=== PATIENT | male | born 1990 | race Caucasian/White ===

== ENCOUNTER 2021-03-08 13:43 | Emergency (ER) | payer OTHER ==
--- NOTE | 2021-03-08 14:14 | EDM.PDOC ---
ED HPI GENERAL MEDICAL PROBLEM - General Chief Complaint: Upper Extremity Injury/Pain Stated Complaint: R HAND INJURY Time Seen by Provider: 03/08/21 13:58 Source of Information: Reports: Patient, RN Notes Reviewed History Limitations: Reports: No Limitations - History of Present Illness INITIAL COMMENTS - FREE TEXT/NARRATIVE: Patient is a 31-year-old male who presents to the ER for 2 fractures of his right hand. Patient was walking down some stairs at work, when he fell into a gap in the stairs, and caught himself with an outstretched right hand. He said he had pain to his right hand after the injury. He went to the occupational health clinic today, they did take x-rays, and sent him here for further evaluation and management as they stated they did not have splinting material to be able to help the gentleman. Been using Tylenol and ibuprofen for pain management but states this is not helped much. He is not having any numbness or tingling into the hand. 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 Patient is right-hand dominant. X-rays were obtained from the [facility], and these do demonstrate midshaft fractures of the third and fourth metacarpals. There is a minimal amount of displacement noted. - Related Data Allergies Allergy/AdvReac Type Severity Reaction Status Date / Time No Known Allergies Allergy Verified 03/08/21 13:58 Home Meds: Home Meds Hydrocodone/Acetaminophen [HYDROcodone-Acetaminophen 5-325 MG] 1 each PO Q6H PRN #20 tablet 03/08/21 [Rx] Past Medical History - Past Health History Medical/Surgical History: Denies Medical/Surgical History Social & Family History - Tobacco Use Tobacco Use Status *Q: Never Tobacco User - Recreational Drug Use Recreational Drug Use: No Review of Systems - Review of Systems Review Of Systems: Comprehensive ROS is negative, except as noted in HPI. ED EXAM, GENERAL - Physical Exam Exam: See Below Exam Limited By: No Limitations General Appearance: Alert, WD/WN, No Apparent Distress Respiratory/Chest: No Respiratory Distress, Lungs Clear, Normal Breath Sounds, No Accessory Muscle Use, Chest Non-Tender Cardiovascular: Normal Peripheral Pulses, Regular Rate, Rhythm, No Edema Extremities: Normal Capillary Refill, Other (There is quite a bit of swelling noted to the dorsal aspect of the patient's right hand. He does have some loss of strength in his hand, due to the pain.) Neurological: Alert, Oriented, Normal Cognition, No Motor/Sensory Deficits Psychiatric: Normal Affect, Normal Mood Skin Exam: Warm, Dry, Intact, Normal Color, No Rash ED TRAUMA EXTREMITY PROCEDURES - Splinting Right Upper Extremity Splint Site: R hand Pre-Procedure NV Status: Normal Post-Procedure NV Status: Normal Splint Material: Fiberglass Splint Design: Gutter (ulnar gutter short arm) Applied & Form Fitted By: Provider Provider Post-Splint Application NV Check: NV Status Normal, Good Position Complications: No Course - Vital Signs Last Recorded V/S: Last Vital Signs Temp 97.2 F 03/08/21 13:55 Pulse 82 03/08/21 13:55 Resp 18 03/08/21 13:55 BP 145/79 H 03/08/21 13:55 Pulse Ox 100 03/08/21 13:55 - Orders/Labs/Meds Meds: Medications Discontinued Medications Generic Name Dose Route Start Last Admin Trade Name Freq PRN Reason Stop Dose Admin Oxycodone/Acetaminophen 2 tab 03/08/21 14:22 03/08/21 14:36 Acetaminophen/Oxycodone 325-5 Mg Tab PO 03/08/21 14:23 2 tab ONETIME ONE Administration - Re-Assessments/Exams Free Text/Narrative Re-Assessment/Exam: 03/08/21 14:15 Patient presents to the ER for the evaluation of his hand injury, x-rays were reviewed from the [facility]. There are 2 fractures of the patient's third and fourth metacarpals, slight displacement noted. I did review these films with Dr. Park, orthopedic surgeon, and he does state that these will likely need plating. Patient will need to follow-up with [facility] in [place]. Departure - Departure Time of Disposition: 14:19 Disposition: Home, Self-Care 01 Condition: Good Clinical Impression: Fracture, metacarpal shaft Qualifiers: Encounter type: initial encounter Metacarpal bone: third Fracture type: closed Fracture alignment: displaced Laterality: right Qualified Code(s): S62.322A - Displaced fracture of shaft of third metacarpal bone, right hand, initial encounter for closed fracture Fracture of metacarpal Qualifiers: Encounter type: initial encounter Metacarpal bone: fourth Fracture type: closed Metacarpal location: shaft Fracture alignment: displaced Laterality: right Qualified Code(s): S62.324A - Displaced fracture of shaft of fourth metacarpal bone, right hand, initial encounter for closed fracture - Discharge Information *PRESCRIPTION DRUG MONITORING PROGRAM REVIEWED*: Yes *COPY OF PRESCRIPTION DRUG MONITORING REPORT IN PATIENT CARLINE: No Prescriptions: Hydrocodone/Acetaminophen [HYDROcodone-Acetaminophen 5-325 MG] 1 each PO Q6H PRN #20 tablet PRN Reason: Pain Instructions: Metacarpal Fracture, [id number] Referrals: PCP,None [Primary Care Provider] - Forms: ED Department Discharge, ED Return to Work/School Form Additional Instructions: You have been evaluated in the ED for your right hand injury. Your x-ray demonstrated a midshaft fracture of your third and fourth metacarpals, that is slightly displaced, and will likely need some sort of surgical plating for ongoing management. Please use ice as tolerated to the affected area. You may elevate the affected area to provide further relief from swelling. You were given a prescription for a strong pain medication, hydrocodone/acetaminophen 5/325, please take 1 tab every 6 hours as needed for pain not relieved by Tylenol or ibuprofen alone. Please note this does contain Tylenol in it, so do not take more than 4000 mg in a 24-hour time span. These medications can be addictive, so please take as few as possible to achieve adequate pain control. These meds can also be quite constipating, recommend that you increase your oral fluid intake and take a stool softener like MiraLAX while taking these medications. We did call the [facility] in [facility] for ongoing management, and talked with Dr. Sanchez Regarding your case. He has reviewed the images, and requests that you will need to go to [facility] on Thursday morning, their address is [address] [facility], for possible surgical management. He requests that you present there by at least noon, this is central time - so you will need to be there by 11 AM Mountain time. I recommend that you go at least 15 to 30 minutes prior to your scheduled appointment time, for paperwork and otherwise. You should be able to go to the front office help, and tell the airline lounge receptionist that I referred you to Dr. Sanchez, and he should be expecting you. You will need to stay n.p.o., or have no food or drink by mouth after midnight Thursday, for expected surgical management on Thursday at your scheduled appointment. Please return to ED if your symptoms should change or worsen. Sepsis Event Note (ED) - Evaluation Sepsis Screening Result: No Definite Risk - Focused Exam Vital Signs: Vital Signs Temp Pulse Resp BP Pulse Ox 03/08/21 13:55 97.2 F 82 18 145/79 H 100
[2021-03-08] MEDS ORDERED: Acetaminophen/oxyCODONE 325-5 MG Tab PO ONE (14:22)
== END 2021-03-08 15:10 | disposition home or self-care (01) ==
LOC: JD.ED 13:43
DX: S62.322A Displaced fracture of shaft of third metacarpal bone, right hand, initial encounter for closed fracture (principal); S62.324A Displaced fracture of shaft of fourth metacarpal bone, right hand, initial encounter for closed fracture; W10.8XXA Fall (on) (from) other stairs and steps, initial encounter; Y99.0 Civilian activity done for income or pay
CPT/HCPCS: 29125; 99283; A9270